=== PATIENT | female | born 1965 | race Caucasian/White ===

== ENCOUNTER → 2022-02-08 | Outpatient (CLI) | payer BC ==
--- NOTE | 2022-02-08 14:58 | CT ---
EXAMINATION TYPE: CT abdomen pelvis wo con DATE OF EXAM: 02/08/2022 COMPARISON: None HISTORY: Abdominal pain. CT DLP: 882 mGycm Examination of the solid and hollow viscera is limited given the lack of contrast. FINDINGS: LUNG BASES: No evidence for nodule. No evidence for infiltrate. LIVER/GB: The gallbladder is unremarkable. No space-occupying hepatic lesion. PANCREAS: No pancreatic mass identified. No inflammatory process seen. SPLEEN: No evidence for splenomegaly. No intrasplenic lesions seen. ADRENALS: No adrenal nodules identified. No evidence for thickening. KIDNEYS: No evidence for renal mass. No nephrolithiasis. No hydronephrosis. BOWEL: Nonvisualization of the appendix. No evidence of bowel obstruction. No inflammatory process. Lymph nodes: No evidence for adenopathy greater than 1 cm. Abdominal aorta: Atheromatous changes seen. No evidence for aneurysm. Genital organs: Hysterectomy changes are noted. There is a large predominantly solid appearing mass i n the region of the right ovary measuring approximately 9.9 x 8.1 x 7.9 cm. Ultrasound recommended to exclude malignancy. No evidence for left adnexal mass. Small amount of free fluid. Other: No significant abnormality. IMPRESSION: 1.There is a large predominantly solid appearing mass in the region of the right ovary measuring appr oximately 9.9 x 8.1 x 7.9 cm. Ultrasound recommended to exclude malignancy.
== END | disposition home or self-care (01) ==
LOC: RADCTMAIN 14:08
PROVIDERS: ATTEND Family Medicine
DX: R10.9 Unspecified abdominal pain (principal)
CPT/HCPCS: 74176

== ENCOUNTER → 2022-02-13 | Outpatient (CLI) | payer BC ==
--- NOTE | 2022-02-13 16:35 | US ---
EXAMINATION TYPE: US pelvic limited DATE OF EXAM: 02/13/2022 COMPARISON: CT 02/08/2022 CLINICAL HISTORY: R19.09 INTRA ABD AND PELVIC SWELLING MASS AND LUMP. CT showed right adnexal mass. Patient states having a total hysterectomy. TECHNIQUE: Transabdominal (TA). Transabdominal sonographic images of the pelvis were acquired. Date of LMP: Hysterectomy EXAM MEASUREMENTS: Grayscale, color Doppler imaging performed 1. Uterus: Surgically absent 2. Endometrium: Surgically absent 3. Right Ovary: Surgically absent 4. Left Ovary: Surgically absent 5. Bilateral Adnexa: right adnexal solid, vascular mass = 8.7 x 7.2 x 7.7 cm 6. Posterior cul-de-sac: no free fluid IMPRESSION: Pelvic mass correlates with CT findings
== END | disposition home or self-care (01) ==
LOC: RADUSWWP 15:49
PROVIDERS: ATTEND Family Medicine
DX: R19.00 Intra-abdominal and pelvic swelling, mass and lump, unspecified site (principal)
CPT/HCPCS: 76857

== ENCOUNTER → 2023-04-23 | Outpatient (CLI) | payer BC ==
--- NOTE | 2023-04-23 15:37 | CT ---
EXAMINATION TYPE: CT ChestAbdPelvis w con DATE OF EXAM: 04/23/2023 COMPARISON: Most recent CT January 22, 2023 and older studies HISTORY: follow up ovarian CA CT DLP: 903.30 mGycm. Automated Exposure Control for Dose Reduction was Utilized. CONTRAST: CT scan of the thorax, abdomen and pelvis is performed with oral and with IV Contrast, patient inject ed with 100 mL of Isovue 300. FINDINGS: LUNGS: The lungs are grossly clear, there is no concerning new greater than 5 mm parenchymal mass or nodule identified. There is no pleural effusion or pneumothorax seen. The tracheobronchial tree is patent. MEDIASTINUM: There are no greater than 1 cm hilar or mediastinal lymph nodes. No cardiomegaly or pe ricardial effusion is seen. LIVER/GB: No significant abnormality is appreciated. PANCREAS: No significant abnormality is seen. SPLEEN: No significant abnormality is seen. ADRENALS: No significant abnormality is seen. KIDNEYS: No significant abnormality is seen. BOWEL: Oral contrast reaches level of the proximal left colon. No suspicious small or large bowel dil atation. Slightly redundant sigmoid colon. GENITAL ORGANS: Uterus is surgically absent. Scattered left-sided pelvic phleboliths are redemonstrat ed. Remnant normal size left ovary axial image 96 there is still seen. There is 3.4 x 2.2 cm low dens e presumed thin-walled fluid collection along the course of the draining left ovary or ovarian vein o n axial image 78. Adjacent surgical clips are seen. Suspect seroma. LYMPH NODES: Surgical clips in the retroperitoneum redemonstrated. No new greater than 1cm abdominal or pelvic lymph nodes are appreciated. OSSEOUS STRUCTURES: No significant abnormality is seen. OTHER: Vertical oriented scar in the anterior abdominal wall. IMPRESSION: No new mass or adenopathy to suggest neoplastic recurrence.
== END | disposition home or self-care (01) ==
LOC: RADCTMAIN 09:26
PROVIDERS: ATTEND Internal Medicine Hematology & Oncology
DX: C56.1 Malignant neoplasm of right ovary (principal)
CPT/HCPCS: 82565; 84520; 71260; 74177; 36415; Q9967

== ENCOUNTER → 2023-09-03 | Outpatient (CLI) | payer BC ==
--- NOTE | 2023-09-06 14:33 | MR ---
EXAMINATION TYPE: MR shoulder RT wo con DATE OF EXAM: 09/03/2023 COMPARISON: None HISTORY: Right shoulder pain TECHNIQUE: Multiplanar, multisequence imaging of the right shoulder is performed without contrast. FINDINGS: There is no bone contusion or fracture. There is marked decreased signal intensity on both the T1 and T2-weighted images in the soft tissues adjacent to the greater tuberosity humerus and within the distal portion of the subscapularis tendon likely indicating m scapularis arked calcific tendinitis and probable chronic tear of the subscapular is tendon. The biceps tendon is normal in position and signal intensity in the biceps anchor is intac t and there is no SLAP injury superior cartilaginous labrum. There is moderate to marked osteophytic change of the AC joint resulting in mild shoulder impingement . There is a small rim rent tear of the supraspinatus tendon. The infraspinatus tendon is intact. IMPRESSION: 1. 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 Correlate with x-rays of the r ight shoulder. 2. Small rim rent tear of the supraspinatus tendon without retraction. 3 moderate degenerative change of the AC joint.
== END | disposition home or self-care (01) ==
LOC: RADMRIMAIN 19:06
PROVIDERS: ATTEND Family Medicine
DX: M19.011 Primary osteoarthritis, right shoulder (principal); M67.813 Other specified disorders of tendon, right shoulder

== ENCOUNTER → 2023-11-13 | Outpatient (CLI) | payer BC ==
[2023-11-13 08:20] LABS: African American GFR (CKD) 89 (>60 ml/min/1.73 sqM); Blood Urea Nitrogen 18 mg/dL (7-17); Non-African American GFR(CKD) 77 (>60 ml/min/1.73 sqM)
--- NOTE | 2023-11-13 09:33 | CT ---
EXAMINATION TYPE: CT ChestAbdPelvis w con CT DLP: 958.6 mGycm, Automated exposure control for dose reduction was used. DATE OF EXAM: 11/13/2023 9:01 AM COMPARISON: CT most recent 08/08/2023. CLINICAL INDICATION:Female, 58 years old with history of C56.1 OVARIAN CANCER; [facility], Follow op ovarian ca Technique: CT ChestAbdPelvis w con; Multiple axial images were obtained. Two-dimensional coronal and sagittal reconstructions were obtained. Contrast used:100 mL of Isovue 300 with IV Contrast, Oral contrast used: with Oral Contrast Findings: CHEST: LUNGS/ PLEURA: No focal consolidation, pneumothorax or pleural effusion. AIRWAY: Patent and unremarkable. HEART: Size within normal limits. MEDIASTINUM: No gross evidence of adenopathy. VASCULATURE: No aortic aneurysm. MUSCULOSKELETAL: No acute osseous abnormalities. SOFT TISSUES/LYMPH NODES: Unremarkable. LOWER NECK: No significant findings. ABDOMEN: ABDOMEN LIVER: Scattered probable hepatic cysts are unchanged from most recent prior., In the right hepatic l obe. GALLBLADDER AND BILE DUCTS: Unremarkable. PANCREAS: Unremarkable. SPLEEN: Unremarkable. ADRENAL GLANDS: Unremarkable. KIDNEYS AND URETERS: No evidence of hydronephrosis or renal calculus. The ureters are unremarkable. PELVIS BLADDER: Unremarkable REPRODUCTIVE: Uterus is surgically absent. ABDOMEN & PELVIS STOMACH AND BOWEL: No evidence of bowel obstruction. There remains a fluid collection along left psoa s muscle measuring 3.6 x 2.0 x 4.9 cm. PERITONEUM: No evidence of pneumoperitoneum or free fluid. VASCULATURE: No evidence of aortic aneurysm. MUSCULOSKELETAL: No acute osseous abnormalities LYMPH NODES: No gross evidence for lymphadenopathy. SOFT TISSUE/ABDOMINAL WALL: Unremarkable IMPRESSION: No evidence for recurrence. There remains a cystic structure anterior to left psoas muscle not signif icantly changed from 09/11/2022. Findings could represent postop seroma.
== END | disposition home or self-care (01) ==
LOC: RADCTMAIN 07:33
PROVIDERS: ATTEND Internal Medicine Hematology & Oncology
DX: C56.1 Malignant neoplasm of right ovary (principal)
CPT/HCPCS: 71260; 74177; 82565; 84520

== ENCOUNTER → 2024-02-23 | Outpatient (CLI) | payer BC ==
[2024-02-23 08:03] LABS: African American GFR (CKD) >90 (>60 ml/min/1.73 sqM); Blood Urea Nitrogen 16 mg/dL (7-17); Non-African American GFR(CKD) 84 (>60 ml/min/1.73 sqM)
--- NOTE | 2024-02-27 18:28 | CT ---
EXAMINATION TYPE: CT ChestAbdPelvis w con CT DLP: 958.40 mGycm, Automated exposure control for dose reduction was used. 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 hx of ovarian ca. TECHNIQUE: Multiple axial images of the chest, abdomen, and pelvis were obtained. Two-dimensional cor onal and sagittal reconstructions were obtained. Contrast used:100 mL of Isovue 300 with IV Contrast, Oral contrast used: with Oral Contrast FINDINGS: CHEST: LUNGS/ PLEURA: The lung parenchyma appears unremarkable. AIRWAY: Central airways are patent. LOWER NECK: No significant findings. MEDIASTINUM: No enlarged lymph nodes by CT criteria.. HEART: Normal heart size. No significant coronary calcifications.. No appreciable pericardial effusio n. VASCULATURE: Mild atherosclerotic calcifications of the aorta and branches. A four-vessel arch is sh own, normal variant. Ascending aorta is 3 CM, descending is 2 CM. Aorta size is considered within no rmal limits. No dissection flap. Pulmonary trunk is difficult to measure precisely due to motion, ho wever is not enlarged. Grossly preserved enhancement of the pulmonary arteries, in the limits of non- CTA exam. SOFT TISSUES/LYMPH NODES: Unremarkable soft tissues. No axillary adenopathy. MUSCULOSKELETAL: No acute osseous abnormalities. Mild disc degeneration changes are present throughou t the thoracolumbar spine. No evidence for destructive lesion. OTHER: No other significant finding. ABDOMEN PELVIS: ABDOMEN LIVER: A couple tiny vague hypodense foci in the posterior right hepatic lobe are unchanged, too smal l to characterize but highly likely benign. GALLBLADDER AND BILE DUCTS: Unremarkable. PANCREAS: Unremarkable. SPLEEN: Unremarkable. ADRENAL GLANDS: Unremarkable.. KIDNEYS AND URETERS: Kidneys concentrate and excrete contrast symmetrically. No evidence of hydroneph rosis or mass. No visible calculus. PELVIS BLADDER: Nearly empty, not well assessed. REPRODUCTIVE: Uterus not seen, likely surgically removed. Right ovary also is probably surgically abs ent. Clips are seen in the iliac chains and retroperitoneum, likely from lymph node dissection. Small soft tissue density again seen in the left pelvis, presumably normal-sized ovary, appears stable and unremarkable. ABDOMEN & PELVIS STOMACH AND BOWEL: Minimal residual contrast within nondistended stomach. Nondistended small bowel lo ops without evidence of obstruction. Appendix is not identified with certainty, however there is no i nflammatory process seen in the RLQ. Contrast is seen mixedwith a moderate amount of stool throughout the colon, no focal acute abnormality is seen. PERITONEUM/RETROPERITONEUM: No evidence of pneumoperitoneum or free fluid. A cystic structure is agai n noted along the anterior aspect of the left psoas measuring 2.2 x 3.3 cm axially, and 4.4 cm cranio caudally, by my estimation not significantly changed compared to prior studies back to 09/11/2022. VASCULATURE: Unremarkable aorta and major branches. No evidence of AAA. Inferior IVC appears somewhat flattened, correlate clinically for decreased fluid status. MUSCULOSKELETAL: No acute osseous abnormalities. Mild disc degeneration changes are present throughou t the thoracolumbar spine. No evidence for lytic/blastic lesion. LYMPH NODES: No enlarged nodes by CT criteria. SOFT TISSUES/ABDOMINAL WALL: Postoperative changes along the ventral midline body wall with superimpo sed tiny fat containing umbilical region hernia. Some bowel loops are close, but not significantly pr otruding into the hernia at this time. OTHER: No other significant finding. IMPRESSION: 1. Overall stable findings, without evidence of recurrent or metastatic disease. 2. Stable cystic structure along the anterior left psoas since 09/11/2022, strongly favored to be be nign such as a seroma.
== END | disposition home or self-care (01) ==
LOC: RADCTMAIN 07:23
PROVIDERS: ATTEND Internal Medicine Hematology & Oncology
DX: C56.1 Malignant neoplasm of right ovary (principal); D64.81 Anemia due to antineoplastic chemotherapy; E78.5 Hyperlipidemia, unspecified; Z71.3 Dietary counseling and surveillance
CPT/HCPCS: 82565; 84520; 71260; 74177; 36415; Q9967

== ENCOUNTER → 2024-08-06 | Outpatient (CLI) | payer BC ==
--- NOTE | 2024-08-08 12:43 | MM ---
Reason for Exam: Screening (asymptomatic). Last mammogram was performed 1 year(s) and 7 month(s) ago. Patient History: Menarche at age 14. First Full-Term at age 19. Left ovary removed at age 44. Right ovary removed at age 44. Hysterectomy at age 44. Postmenopausal. Ovarian cancer, age 57. Previous chemotherapy at age 57. Estrogen, starting at age 49 for 1 year. Risk Values: Ana M 5 year model risk: 0.9%. NCI Lifetime model risk: 5.0%. Prior Study Comparison: 02/14/2016 Bilateral Screening Mammogram, MERGED WITH [facility]. 02/20/2016 Bilateral Diagnostic Mammogram, MERGED WITH [facility]. 01/20/2023 Bilateral MG 3D screening mammo w/cad, MERGED WITH [facility]. Tissue Density: The breasts are heterogeneously dense, which may obscure small masses. Findings: Analyzed By CAD. Right breast: There is no suspicious group of microcalcifications or new suspicious mass. Left breast: There is no suspicious group of microcalcifications or new suspicious mass. Overall Assessment: Negative, BI-RAD 1 Management: Screening Mammogram of both breasts in [address] [facility] will attempt to contact patient to return for supplemental views and ultrasound if indicated. Patient should continue monthly self-breast exams. A clinical breast exam by your physician is recommended on an annual basis. This exam should not preclude additional follow-up of suspicious palpable abnormalities. Note on Ana M scores and lifetime risk: 1. A Ana M score greater than 3% is considered moderate risk. If this is the case, consider specialist referral to assess eligibility for a risk reducing agent. 2. If overall lifetime risk for the development of breast cancer is 20% or higher, the patient may qualify for future screening with alternating mammogram and breast MRI. Electronically signed and approved by: Kaden Gaytan DO
== END | disposition home or self-care (01) ==
LOC: RADMAMWWP 16:16
PROVIDERS: ATTEND Family Medicine
DX: Z12.39 Encounter for other screening for malignant neoplasm of breast
CPT/HCPCS: 77063; 77067

== ENCOUNTER → 2024-08-16 | Outpatient (CLI) | payer BC ==
[2024-08-16 07:53] LABS: African American GFR (CKD) 90 (>60 ml/min/1.73 sqM); Blood Urea Nitrogen 18 mg/dL (7-17); Non-African American GFR(CKD) 78 (>60 ml/min/1.73 sqM)
--- NOTE | 2024-08-16 09:32 | CT ---
EXAMINATION TYPE: CT ChestAbdPelvis w con CT DLP: 964.8 mGycm, Automated exposure control for dose reduction was used. DATE OF EXAM: 08/16/2024 8:35 AM COMPARISON: 02/23/2024 CLINICAL INDICATION: Female, 59 years old with history of C56.1 OVARIAN CANCER; [facility], OVARIAN CA Technique: CT ChestAbdPelvis w con; Multiple axial images were obtained. Two-dimensional coronal and sagittal reconstructions were obtained. Contrast used:100 mL of Isovue 300 with IV Contrast, Oral contrast used: with Oral Contrast Findings: EXAMINATION TYPE: CT ChestAbdPelvis w con CT DLP: 964.8 mGycm, Automated exposure control for dose reduction was used. DATE OF EXAM: 08/16/2024 8:35 AM COMPARISON: CT most recent 08/08/2023. CLINICAL INDICATION:Female, 59 years old with history of C56.1 OVARIAN CANCER; PH[facility], OVARIAN CA Technique: CT ChestAbdPelvis w con; Multiple axial images were obtained. Two-dimensional coronal and sagittal reconstructions were obtained. Contrast used:100 mL of Isovue 300 with IV Contrast, Oral contrast used: with Oral Contrast Findings: CHEST: LUNGS/ PLEURA: No focal consolidation, pneumothorax or pleural effusion. AIRWAY: Patent and unremarkable. HEART: Size within normal limits. MEDIASTINUM: No gross evidence of adenopathy. VASCULATURE: No aortic aneurysm. MUSCULOSKELETAL: No acute osseous abnormalities. SOFT TISSUES/LYMPH NODES: Unremarkable. LOWER NECK: No significant findings. ABDOMEN: ABDOMEN LIVER: Scattered probable hepatic cysts in the the right hepatic lobe. These are stable. GALLBLADDER AND BILE DUCTS: Unremarkable. PANCREAS: Unremarkable. SPLEEN: Unremarkable. ADRENAL GLANDS: Unremarkable. KIDNEYS AND URETERS: No evidence of hydronephrosis or renal calculus. The ureters are unremarkable. PELVIS BLADDER: Unremarkable REPRODUCTIVE: Uterus is surgically absent. ABDOMEN & PELVIS STOMACH AND BOWEL: No evidence of bowel obstruction. Large amount of fluid is seen throughout the bow el. PERITONEUM: No evidence of pneumoperitoneum or free fluid. There remains a fluid collection along lef t psoas muscle measuring similarly at 3.4 x 2.3 x 4.5 cm. VASCULATURE: No evidence of aortic aneurysm. MUSCULOSKELETAL: No acute osseous abnormalities LYMPH NODES: No gross evidence for lymphadenopathy. SOFT TISSUE/ABDOMINAL WALL: Unremarkable IMPRESSION: No evidence for recurrence. There remains a cystic structure anterior to left psoas muscle not signif icantly changed from 09/11/2022. Findings could represent postop seroma. [facility] Last, , 08/16/2024 9:30 AM
== END | disposition home or self-care (01) ==
LOC: RADCTMAIN 07:15
PROVIDERS: ATTEND Internal Medicine Hematology & Oncology
DX: C56.1 Malignant neoplasm of right ovary
CPT/HCPCS: 36415; 71260; 74177; 82565; 84520